=== PATIENT | female | born 1995 | race Two or more races ===

== ENCOUNTER 2019-06-08 21:28 | Emergency (ER) | payer SELFPAY ==
[~2019-06-08] VITALS: Ht 160 cm; Wt 85.7 kg
[2019-06-08 21:35] VITALS: BP 155/90
[2019-06-08 21:58] LABS: BILIRUBIN,URINE NEGATIVE (NEG); CLARITY,URINE CLEAR; COLOR,URINE YELLOW; NITRITE,URINE NEGATIVE (NEG); PH,URINE 7.5; PROTEIN,URINE NEGATIVE (NEG-TRACE)
[2019-06-08] MEDS ORDERED: diazePAM 5 MG TABLET PO ONE (22:00)
[2019-06-08] MEDS ORDERED: GABAPENTIN 300 MG CAPSULE. PO ONE (22:00)
[2019-06-08] MEDS ORDERED: HYDROcodone/APAP 5/325MG 1 TAB TABLET PO ONE (22:00)
[2019-06-08] MEDS ORDERED: predniSONE 10 MG TABLET PO ONE (22:00)
[2019-06-08 22:03] LABS: BACTERIA,URINE FEW /HPF (0-FEW); SQUAMOUS EPITHELIAL CELL,UR MOD /LPF
[2019-06-08 22:04] LABS: RBC,URINE OCC /HPF (0-2)
--- NOTE | 2019-06-08 22:08 | PHYS DOC ---
Past Medical History Past Medical History: No Pertinent History (ROLANDO TAN APRN) Past Surgical History: No Surgical History (ROLANDO TAN APRN) Alcohol Use: None Drug Use: None (ROLANDO TAN APRN) Adult General Chief Complaint Chief Complaint: LOWER EXT PAIN HPI HPI Patient is a 23 year old female patient with no significant medical history who presents to the ED today primarily complaining of 10 out of 10 right low back pain radiating to the right lower extremity for 1 month. Patient denies any known injury. Denies any alleviating factors to her symptoms, she states she has tried ibuprofen and Tylenol with no relief. 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 She is also complaining of generalized neck pain for the same amount of time. She states her pain is worse at work when she is moving around. Patient denies any injury. Denies any loss of bowel/bladder function. Denies any numbness or tingling to bilateral lower extremities. The mother reports she herself has seen a chiropractor but patient has not been seen by the chiropractor. Mother is interpreting for [place]. (ROLANDO TAN APRN) Review of Systems Review of Systems Constitutional: Denies fever or chills [] Eyes: Denies change in visual acuity, redness, or eye pain [] HENT: Denies nasal congestion or sore throat [] Respiratory: Denies cough or shortness of breath [] Cardiovascular: No additional information not addressed in HPI [] GI: Denies abdominal pain, nausea, vomiting, bloody stools or diarrhea [] : Denies dysuria or hematuria [] Musculoskeletal: Reports right low back pain radiating to the right lower extremity, reports neck pain Integument: Denies rash or skin lesions [] Neurologic: Denies headache, focal weakness or sensory changes [] All other systems were reviewed and found to be within normal limits, except as documented in this note. (ROLANDO TAN APRN) Current Medications Current Medications Current Medications Medications (Trade) Dose Ordered Sig/Katherine Start Time Stop Time Status Last Admin Dose Admin Acetaminophen/ Hydrocodone Bitart (Lortab 5/325) 1 tab 1X ONCE 06/08/19 22:00 06/08/19 22:01 DC 06/08/19 22:13 1 TAB Diazepam (Valium) 5 mg 1X ONCE 06/08/19 22:00 06/08/19 22:01 DC 06/08/19 22:12 5 MG Gabapentin (Neurontin) 300 mg 1X ONCE 06/08/19 22:00 06/08/19 22:01 DC 06/08/19 22:12 300 MG Prednisone (Prednisone) 50 mg 1X ONCE 06/08/19 22:00 06/08/19 22:01 DC 06/08/19 22:12 50 MG (QUOC LOVE MD) Allergies Allergies Allergies Coded Allergies Type Severity Reaction Last Updated Verified No Known Drug Allergies 06/08/19 No (QUOC LOVE MD) Physical Exam Physical Exam Constitutional: Well developed, well nourished, no acute distress, non-toxic appearance. [] HENT: Normocephalic, atraumatic, bilateral external ears normal, oropharynx moist, no oral exudates, nose normal. [] Eyes: PERRLA, EOMI, conjunctiva normal, no discharge. [] Neck: Normal range of motion, no tenderness, supple, no stridor. [] Cardiovascular:Heart rate regular rhythm, no murmur [] Lungs & Thorax: Bilateral breath sounds clear to auscultation [] Abdomen: Bowel sounds normal, soft, no tenderness, no masses, no pulsatile ma sses. [] Skin: Warm, dry, no erythema, no rash. [] Back: Moderate tenderness on palpation of the right SI joint, no midline lumbar spine tenderness, no CVA tenderness. Positive straight leg raise to the right lower extremity at approximately 20� Extremities: No tenderness, no cyanosis, no clubbing, ROM intact, no edema. [] Neurologic: Alert and oriented X 3, normal motor function, normal sensory function, no focal deficits noted. [] Psychologic: Affect normal, judgement normal, mood normal. [] (ROLANDO TAN APRN) Current Patient Data Vital Signs Vital Signs Date Time Temp Pulse Resp B/P (MAP) Pulse Ox O2 Delivery O2 Flow Rate FiO2 06/08/19 22:13 20 99 06/08/19 21:35 98.9 97 155/90 (111) Room Air 98.9 (QUOC LOVE MD) Lab Values Laboratory Tests Test 06/08/19 21:35 06/08/19 21:52 06/08/19 22:18 Urine Collection Type Unknown Urine Color Yellow Urine Clarity Clear Urine pH 7.5 Urine Specific [place] 1.020 Urine Protein Negative mg/dL (NEG-TRACE) Urine Glucose (UA) Negative mg/dL (NEG) Urine Ketones (Stick) Negative mg/dL (NEG) Urine Blood Negative (NEG) Urine Nitrite Negative (NEG) Urine Bilirubin Negative (NEG) Urine Urobilinogen Dipstick 1.0 mg/dL (0.2 mg/dL) Urine Leukocyte Esterase Negative (NEG) Urine RBC Occ /HPF (0-2) Urine WBC 1-4 /HPF (0-4) Urine Squamous Epithelial Cells Mod /LPF Urine Bacteria Few /HPF (0-FEW) Urine Mucus Mod /LPF POC Urine HCG, Qualitative Hcg negative (Negative) White Blood Count 10.5 x10^3/uL (4.0-11.0) Red Blood Count 4.50 x10^6/uL (3.50-5.40) Hemoglobin 13.7 g/dL (12.0-15.5) Hematocrit 39.9 % (36.0-47.0) Mean Corpuscular Volume 89 fL (79-100) Mean Corpuscular Hemoglobin 30 pg (25-35) Mean Corpuscular Hemoglobin Concent 34 g/dL (31-37) Red Cell Distribution Width 13.0 % (11.5-14.5) Platelet Count 374 x10^3/uL (140-400) Neutrophils (%) (Auto) 65 % (31-73) Lymphocytes (%) (Auto) 24 % (24-48) Monocytes (%) (Auto) 9 % (0-9) Eosinophils (%) (Auto) 2 % (0-3) Basophils (%) (Auto) 1 % (0-3) Neutrophils # (Auto) 6.8 x10^3/uL (1.8-7.7) Lymphocytes # (Auto) 2.5 x10^3/uL (1.0-4.8) Monocytes # (Auto) 0.9 x10^3/uL (0.0-1.1) Eosinophils # (Auto) 0.2 x10^3/uL (0.0-0.7) Basophils # (Auto) 0.1 x10^3/uL (0.0-0.2) Sodium Level 144 mmol/L (136-145) Potassium Level 3.8 mmol/L (3.5-5.1) Chloride Level 107 mmol/L (98-107) Carbon Dioxide Level 29 mmol/L (21-32) Anion Gap 8 (6-14) Blood Urea Nitrogen 12 mg/dL (7-20) Creatinine 0.9 mg/dL (0.6-1.0) Estimated GFR (Cockcroft-Gault) 79.0 BUN/Creatinine Ratio 13 (6-20) Glucose Level 94 mg/dL (70-99) Calcium Level 8.8 mg/dL (8.5-10.1) Total Bilirubin 0.2 mg/dL (0.2-1.0) Aspartate Amino Transferase (AST) 31 U/L (15-37) Alanine Aminotransferase (ALT) 44 U/L (14-59) Alkaline Phosphatase 121 U/L (46-116) H Total Protein 7.6 g/dL (6.4-8.2) Albumin 3.7 g/dL (3.4-5.0) Albumin/Globulin Ratio 0.9 (1.0-1.7) L Laboratory Tests 06/08/19 22:18 Laboratory Tests 06/08/19 22:18 (QUOC LOVE MD) EKG EKG [] (ROLANDO TAN APRN) Radiology/Procedures Radiology/Procedures []PROCEDURE: CERVICAL SPINE 2-3V Exam: Cervical spine 3 views INDICATION: Pain, no injury TECHNIQUE: Frontal, lateral and odontoid views of the cervical spine. Comparisons: None FINDINGS: Vertebral body heights are well-maintained. There is straightening of the cervical spine which may be positional. No significant spondylotic change identified in the cervical spine. Visualized paraspinal soft tissues are unremarkable. IMPRESSION: Straightening of the spine which may be positional or secondary to muscle spasm. Electronically signed by: Gloria Bynum MD (06/08/2019 10:57 PM) [facility] DICTATED and SIGNED BY: GLORIA BYNUM MD DATE: 06/08/19 2254 PROCEDURE: LUMBAR SPINE 2-3V Exam: Lumbar spine 3 views INDICATION: Pain no injury TECHNIQUE: Frontal and lateral views of the lumbar spine with spot magnification view of the lumbosacral junction. Comparisons: None FINDINGS: Vertebral body heights and alignment are well-maintained. No significant spondylotic change in the lumbar spine. Visualized paraspinal soft tissues are unremarkable. IMPRESSION: Unremarkable lumbar spine radiographs. Electronically signed by: Gloria Bynum MD (06/08/2019 10:59 PM) [facility] DICTATED and SIGNED BY: GLORIA BYNUM MD DATE: 06/08/19 2259 (ROLANDO TAN APRN) Course & Med Decision Making Course & Med Decision Making Pertinent Labs and Imaging studies reviewed. (See chart for details) This is a 23-year-old female patient who presents to the ED today complaining of right low back pain radiating to the right lower extremity as well as generalized neck pain for 1 month. Patient denies any trauma, no cauda equina s yndrome symptoms. UA negative. Patient herself requested labs, CBC, CMP-negative. Cervical spine x-rays and lumbar spine x-rays are negative Provided patient a pain clinic for follow-up. Heating pad recommended a bicarbonate. (ROLANDO TAN APRN) Course & Med Decision Making Staff Physician Addendum: I was working in the ER during the course of this patient's visit. I was available for consultation as needed, but I was not directly involved in the care of this patient. (QUOC LOVE MD) Dragon Disclaimer Dragon Disclaimer This electronic medical record was generated, in whole or in part, using a voice recognition dictation system. (ROLANDO TAN APRN) Departure Departure Impression: Primary Impression: Sciatica of right side Additional Impression: Neck pain Disposition: HOME, SELF-CARE Condition: STABLE Referrals: LEVI MULLEN MD Follow-up in 1-2 weeks Patient Instructions: Sciatica, [id number] Additional Instructions: You were evaluated in the emergency room for back and neck pain. Your physical exam is consistent with sciatica which is a pinched nerve on your back that causes pain to the legs. Try and get a heating pad and place on your low back region as well as the hip area where the pain is. Take the prescribed pain medication as ordered. Please do not drive on this pain medications. Scripts Diclofenac Potassium (DICLOFENAC POTASSIUM) 50 Mg Tablet 1 TAB PO BID, #20 TAB Prov: ROLANDO TAN APRN 06/08/19 Hydrocodone/Apap 5-325 (NORCO 5-325 TABLET) 1 Each Tablet 1 TAB PO Q6HRS, #20 TAB Prov: ROLANDO TAN APRN 06/08/19 Cyclobenzaprine Hcl (CYCLOBENZAPRINE HCL) 10 Mg Tablet 1 TAB PO TID, #30 TAB Prov: ROLANDO TAN APRN 06/08/19 Methylprednisolone (MEDROL) 4 Mg Tab.ds.pk 1 PKG PO UD, #1 PKG Prov: ROLANDO TAN APRN 06/08/19 Problem Qualifiers ROLANDO TAN APRN Jun 08, 2019 22:08 QUOC LOVE MD Jun 09, 2019 03:51
[2019-06-08 22:25] LABS: BASO # 0.1 x10^3/uL (0.0-0.2); BASO % 1 % (0-3); EOS # 0.2 x10^3/uL (0.0-0.7); EOS % 2 % (0-3); HEMATOCRIT 39.9 % (36.0-47.0); HEMOGLOBIN 13.7 g/dL (12.0-15.5); LYMPH # 2.5 x10^3/uL (1.0-4.8); LYMPH % 24 % (24-48); MEAN CORPUSCULAR HEMOGLOBIN 30 pg (25-35); MEAN CORPUSCULAR HGB CONC 34 g/dL (31-37); MEAN CORPUSCULAR VOLUME 89 fL (79-100); MONO # 0.9 x10^3/uL (0.0-1.1); MONO % 9 % (0-9); NEUT # 6.8 x10^3/uL (1.8-7.7); NEUT % 65 % (31-73); PLATELET COUNT 374 x10^3/uL (140-400); WHITE BLOOD COUNT 10.5 x10^3/uL (4.0-11.0)
[2019-06-08 22:37] LABS: CALCIUM 8.8 mg/dL (8.5-10.1); CREATININE 0.9 mg/dL (0.6-1.0); POTASSIUM 3.8 mmol/L (3.5-5.1)
[2019-06-08 22:42] LABS: ALBUMIN 3.7 g/dL (3.4-5.0); ALBUMIN/GLOBULIN RATIO 0.9 (1.0-1.7); TOTAL BILIRUBIN 0.2 mg/dL (0.2-1.0); TOTAL PROTEIN 7.6 g/dL (6.4-8.2)
--- NOTE | 2019-06-08 22:59 | RAD ---
Exam: Cervical spine 3 views INDICATION: Pain, no injury TECHNIQUE: Frontal, lateral and odontoid views of the cervical spine. Comparisons: None FINDINGS: Vertebral body heights are well-maintained. There is straightening of the cervical spine which may be positional. No significant spondylotic change identified in the cervical spine. Visualized paraspinal soft tissues are unremarkable. IMPRESSION: Straightening of the spine which may be positional or secondary to muscle spasm. Electronically signed by: Gloria Nieves MD (06/08/2019 10:57 PM) [facility]
--- NOTE | 2019-06-08 23:02 | RAD ---
Exam: Lumbar spine 3 views INDICATION: Pain no injury TECHNIQUE: Frontal and lateral views of the lumbar spine with spot magnification view of the lumbosacral junction. Comparisons: None FINDINGS: Vertebral body heights and alignment are well-maintained. No significant spondylotic change in the lumbar spine. Visualized paraspinal soft tissues are unremarkable. IMPRESSION: Unremarkable lumbar spine radiographs. Electronically signed by: Gloria Nieves MD (06/08/2019 10:59 PM) [facility]
[2019-06-08] MEDS ORDERED: DICL50TA2 PO (23:52)
[2019-06-08] MEDS ORDERED: HYDR-3164 PO (23:52)
[2019-06-08] MEDS ORDERED: CYCL10TA2 PO (23:52)
[2019-06-08] MEDS ORDERED: METH4TAB2 PO (23:52)
== END 2019-06-09 00:05 | disposition home or self-care (01) ==
LOC: ER 21:28
DX: M54.41 Lumbago with sciatica, right side (principal); M54.2 Cervicalgia
CPT/HCPCS: 36415; 72040; 72100; 80053; 81001; 81025; 85025; 99285; J7512